=== PATIENT | female | born 1990 | race Caucasian/White ===

== ENCOUNTER 2021-03-22 23:42 | Outpatient (CLI) | payer OTHER ==
[~2021-03-22] VITALS: Ht 170.2 cm; Wt 127.7 kg
[2021-03-22 00:01] VITALS: BP 138/64; PULSE 107; TEMP 98
[~2021-03-22 23:42] MED LIST: CLARITIN 1010 MG/TAB; FERROUS SU325 MG/TAB PO; MOTRIN 800800 MG/TAB PO; PERCOCET 325 MG1 TA2 PO; [UNRECOGNIZED DRUG - OTHER] PO
--- NOTE | 2021-03-23 | NUR ---
0000 G2L1 38.1 WEEK GEST TO LR4 WITH C/O CONTRACTIONS FOR LAST 2 HOURS. EFM ON. CONTRACTIONS NOTED EVERY 3-4 MINUTES. PT STATES AFTER LYING DOWN, DOES NOT FEEL CONTRACTIONS MUCH. SVE 1/0/-3 BALLOTABLE. ADM ASSESSMENT COMPLETED. FIRST B/P WITH SMALLER CUFF 191/83. CUFF CHANGED TO LARGER SIZE AND B/P 138/64. 0025 DR CASTILLO NOTIFIED OF PT AND ORDER GIVEN TO SEND HOME IF SECOND SVE IS THE SAME.
[2021-03-23 01:00] VITALS: BP 129/71; PULSE 95
--- NOTE | 2021-03-23 01:00 | NUR ---
0100 PT FEELING BETTER. TIRED AND READY FOR SLEEP. SVE WITH NO CERVICAL CHANGE IN AN HOUR. DISMISS INSTRUCTIONS GIVEN 0105 HOME WITH INSTRUCTIONS
== END 2021-03-23 01:05 | disposition home or self-care (01) ==
LOC: LDR 23:42 → LDRO 23:42 → LDR 23:43 → LDRO 03-23 01:05
DX: O62.9 Abnormality of forces of labor, unspecified (principal); Z3A.38 38 weeks gestation of pregnancy
CPT/HCPCS: OP

== ENCOUNTER 2021-04-03 06:42 | Inpatient (IN) | payer OTHER ==
[~2021-04-03] VITALS: Ht 167.6 cm; Wt 126.4 kg
[2021-04-03] VITALS (60 sets, daily range): BP systolic 111–175; BP diastolic 55–96; PULSE 64–101; TEMP 97.5–98.6
--- NOTE | 2021-04-03 06:48 | NUR ---
Pt arrives on unit ambulatory with spouse for IOL. Changed into a clean gown. EFM and toco applied. VSS. Denies regular ctx, LOF, vaginal bleeding and reports GFM. IV started in LH. Labs drawn. LR infusing. Admission assessment completed. Consents signed. Pt oriented to room. Updated on POC. 0710-Cat 1 FHR strip obtained. Pitocin started at 2mU.
[2021-04-03 07:38] LABS: BASO % 0.2 % (0.0-2.0); EOS % 0.5 % (0-4.0); GRAN # 6.5 (1.4-6.5); GRAN % 75.4 % (42.2-75.2); LYMPH # 1.5 (1.2-3.4); LYMPH % 17.8 % (20.0-51.0); MEAN CELL VOLUME 88 fl (80.0-100.0); MEAN CORPUSCULAR HEMOGLOBIN 28 pg (27.0-31.0); MEAN CORPUSCULAR HGB CONC 32 g/dl (33.0-37.0); MEAN PLATELET VOLUME 11.9 fl (7.4-10.4); MONO # 0.5 (0.1-0.6); MONO % 5.5 % (1.7-9.3); PLATELET COUNT 289 K/mm3 (130-400); RED BLOOD COUNT 3.93 M/mm3 (4.10-5.30); REDCELL DISTRIBUTION WIDTH-CV 13.3 % (11.5-14.5)
--- NOTE | 2021-04-03 07:40 | NUR ---
Pt taken off monitors to ambulate to bathroom. 0744-Pt back to bed with monitors. FHR noted in the 110s with approximately 30 second return to 125 baseline. Difficulty with interpretation of FHR with ctx in relation to monitors being reapplied. LR bolus infusing.
[2021-04-03 07:52] LABS: HEMATOCRIT 34.4 % (37.0-47.0)
--- NOTE | 2021-04-03 09:20 | NUR ---
Pt taken off monitors and to bathroom. 0925-FHR noted in the 100s upon returning to bed from bathroom. Resolves spontaneously to 120s. RN at bedside.
--- NOTE | 2021-04-03 09:47 | NUR ---
Pt sitting upright for epidural placement. Difficulty tracing FHR due to maternal position. RN at bedside adjusting monitors. FHR audible.
--- NOTE | 2021-04-03 10:08 | NUR ---
RN at bedside. Pt comfortable with epidural. 1010-Two recurrent FHR decels into the 70s after contractions. BP 110s/70s. Pitocin shut off. LR bolus infusing. Pt repositioned LL. FHR returns to 125 baseline with accelerations. Moulton catheter placed. SVE per this RN 3-4/50/-3. Pt repositioned LL with RLS. 1020-Pitocin restarted at 10mU. Dr. Mcdermott notified. See physician notification.
--- NOTE | 2021-04-03 10:56 | NUR ---
Late deceleration noted. RN at bedside. Repositions pt RL. Late deceleration following repositioning into the 60-70s. Pulse Ox applied to differentiate maternal HR v. FHR.Pitocin shut off. LR bolus infusing. O2 applied via simple mask at 10L. 1100-SVE per this RN /-3. FSE applied. Pt remains RL. FHr in the 110s with early decelerations. See physician notification.
--- NOTE | 2021-04-03 12:00 | NUR ---
Provider on unit. Reviews FHR strip. Orders to continue increasing pitocin.
--- NOTE | 2021-04-03 12:15 | NUR ---
Pt called out with N/V. RN at bedside. 900cc of emesis noted. FHR decreased with vagal resonse. Returns to 125 baseline after N/V episode.
--- NOTE | 2021-04-03 13:30 | NUR ---
Dr. Mcdermott on unit. Reviews FHR strip. No new orders.
--- NOTE | 2021-04-03 13:43 | NUR ---
Dr. Mcdermott at bedside. SVE per provider /-2. FSE reapplied. Pt repositioned PP. Deep variable decelerations noted. Pt repositioned LL with PB. Deep variables remain. PB d/c'd. Pt Ll. 1353-Dr. Mcdermott off unit. Orders to continue expectant management of labor.
--- NOTE | 2021-04-03 15:30 | NUR ---
SVE per this RN /-2. Pt repositioned PP. FHR decreased with position change. See physician notifications for interventions.
--- NOTE | 2021-04-03 16:17 | NUR ---
Dr. Mcdermott on unit. Reviews FHR strip. No new orders at this time.
--- NOTE | 2021-04-03 16:30 | NUR ---
Dr. Mcdermott at bedside. SVE per provider C/0. FHR deceleration with vaginal exam. Orders per provider to turn off pitocin and apply O2 via simple mask at 10L. Pt repositioned to ELIAS. 1641-FHR returns to 115 baseline. Provider remains on unit.
--- NOTE | 2021-04-03 17:10 | NUR ---
Dr. Mcdermott at bedside. Begins pushing with pt. Difficulty tracing FHR during pushing. Reactive FHR strip in between contractions. 1739-Orders to start pitocin at 2mU per provider. 1744-Orders to increase pitocin to 4mU per provider. This RN discusses time to increase pitocin at 15 minutes at 1754. Orders to increase regardless.
--- NOTE | 2021-04-03 18:20 | NUR ---
1820- THIS RN TOOK OVER CARE OF THIS LABORING PATIENT. PATIENT HAD BEEN PUSHING SINCE 1705. BEDSIDE REPORT GIVEN FROM Randy MERCHANT RN. THIS RN AND PROVIDER CONTINUED PUSHING WITH PATIENT. 1833- PROVIDER AND PATIENT DISCUSSED HAS PATIENT FELT SHE COULD NOT PUSH ANYMORE AND PROVIDER VERBALIZED THE HEAD NOT DECENDING DOWN WITH PUSHING. AGREED UPON AND DISCUSSED PROCEDURE AND WHAT TO EXPECT. 1834- PITOCIN TURNED OFF BY THIS RN. PATIENT AND SPOUSE PREPPED FOR OR DELIVERY. 1838- PATIENT ACTIVELY VOMITING FROM PAIN. FHR DECELERATION NOTED DOWN INTO THE 80S. PROVIDER AT BEDSIDE DURING THIS TIME. PATIENT REPOSITIONED AFTER FINISHED VOMITING. 1839 FHR BACK TO 140. PATIENT CONITINUED TO BE PREPPED FOR DELIVERY ONCE DONE VOMITING. 1846- PATIENT DISCONNECTED FROM MONITORS AND WHEELED BACK TO THE OR FOR DELIVERY.
[2021-04-04 04:00] VITALS: BP 118/54; PULSE 78; TEMP 98
[2021-04-04 06:42] VITALS: BP 108/62; PULSE 76; TEMP 98
[2021-04-04 06:52] LABS: MEAN CELL VOLUME 87 fl (80.0-100.0); MEAN CORPUSCULAR HGB CONC 33 g/dl (33.0-37.0); PLATELET COUNT 250 K/mm3 (130-400); RED BLOOD COUNT 3.32 M/mm3 (4.10-5.30); REDCELL DISTRIBUTION WIDTH-CV 13.5 % (11.5-14.5)
[2021-04-04 07:01] LABS: HEMATOCRIT 28.8 % (37.0-47.0); HEMOGLOBIN 9.4 g/dl (12.5-16.0); MEAN CORPUSCULAR HEMOGLOBIN 28 pg (27.0-31.0)
[2021-04-04] MEDS ORDERED: PERCOCET 325 MG1 TA2 PO (10:59)
[2021-04-04] MEDS ORDERED: IBU800 M1 PO (10:59)
[2021-04-04 13:30] VITALS: BP 111/69; PULSE 78; TEMP 98
--- NOTE | 2021-04-04 14:00 | NUR ---
Rests in bed, alert. Percocet 5/325 mg two given per request and as ordered.
[2021-04-04 18:00] VITALS: BP 120/66; PULSE 76; TEMP 97.8
--- NOTE | 2021-04-04 18:14 | NUR ---
Ibuprofen 800 mg given as ordered.
[2021-04-04 21:48] VITALS: BP 121/79; PULSE 81; TEMP 98.8
--- NOTE | 2021-04-05 08:30 | NUR ---
Rests in chair, alert. Denies any discomfort or needs at this time.
[2021-04-05 10:00] VITALS: BP 132/73; PULSE 86; TEMP 97.5
--- NOTE | 2021-04-05 10:30 | NUR ---
Ibuprofen 800 mg given as ordered.
--- NOTE | 2021-04-05 15:50 | NUR ---
Rests in bed, alert. Tylenol 650 mng given per request and as ordered.
[2021-04-05 20:07] VITALS: BP 131/74; PULSE 92; TEMP 98.2
--- NOTE | 2021-04-06 06:30 | NUR ---
REPORT RECEIVED FROM OFF GOING RN, ANGIE Arnett. CARE TAKEN OVER BY THIS RN.
[2021-04-06 07:43] VITALS: BP 148/85; PULSE 77; TEMP 97.5
[2021-04-06 08:56] LABS: MEAN CELL VOLUME 88 fl (80.0-100.0); MEAN CORPUSCULAR HGB CONC 32 g/dl (33.0-37.0); MEAN PLATELET VOLUME 11.2 fl (7.4-10.4); PLATELET COUNT 277 K/mm3 (130-400); REDCELL DISTRIBUTION WIDTH-CV 13.9 % (11.5-14.5)
[2021-04-06 08:57] VITALS: BP 127/78; PULSE 77
[2021-04-06 08:58] LABS: HEMOGLOBIN 9.2 g/dl (12.5-16.0); MEAN CORPUSCULAR HEMOGLOBIN 28 pg (27.0-31.0)
[2021-04-06 09:46] LABS: ALBUMIN 2.7 gm/dL (3.5-5.0); BILIRUBIN,TOTAL 0.2 mg/dL (0.0-1.0); CALCIUM 8.5 mg/dL (8.4-10.2); CREATININE, serum 0.6 (0.52-1.25); TOTAL PROTEIN 5.6 gm/dL (6.4-8.2)
== END 2021-04-06 16:35 | disposition home health service (06) | DRG 788 ==
LOC: LDR 06:42 → OB 06:42
PROVIDERS: ADMIT Student in an Organized Health Care Education/Training Program
PROC: 10D00Z1 Extraction of Products of Conception, Low, Open Approach (ICD-10-PCS; principal; 2021-04-03)
DX: O62.1 Secondary uterine inertia (principal); O99.214 Obesity complicating childbirth; E66.9 Obesity, unspecified; O99.344 Other mental disorders complicating childbirth; F41.8 Other specified anxiety disorders; Z3A.39 39 weeks gestation of pregnancy; Z37.0 Single live birth; O76 Abnormality in fetal heart rate and rhythm complicating labor and delivery
CPT/HCPCS: J0690; J1885; J2370; J2400; J2405; J2590; J7120